=== PATIENT | male | born 2000 | race Caucasian/White ===

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

== ENCOUNTER 2022-03-03 09:10 | Emergency (ER) | payer MEDICAID ==
[~2022-03-03] VITALS: Ht 185.4 cm; Wt 68.2 kg
[~2022-03-03 09:10] MED LIST changes: +TORADOL PO; +ZYPREXA PO
[2022-03-03 09:45] VITALS: BP 129/77
== END 2022-03-03 09:45 | disposition home or self-care (01) ==
LOC: ED 09:10
DX: S61.012A Laceration without foreign body of left thumb without damage to nail, initial encounter (principal); F41.9 Anxiety disorder, unspecified; F32.A Depression, unspecified; W45.8XXA Other foreign body or object entering through skin, initial encounter; Y92.009 Unspecified place in unspecified non-institutional (private) residence as the place of occurrence of the external cause

== ENCOUNTER 2023-10-22 04:45 | Observation (INO) | payer SELFPAY ==
[2023-10-22] VITALS (16 sets, daily range): BP systolic 116–138; BP diastolic 66–110
[~2023-10-22] VITALS: Ht 185.4 cm; Wt 79.5 kg
[~2023-10-22 04:45] MED LIST changes: +MEDICAL MARIJUANA; +METRONIDAZOLE500 MG PO
[2023-10-22] MEDS ORDERED: SODIUM CHLORIDE 0.9% 1,000 ML IV STA (05:04)
[2023-10-22] MEDS ORDERED: ONDANSETRON HCl 4 MG/2 ML SDV IV STA (05:04)
[2023-10-22] MEDS ORDERED: KETOROLAC TROMETHAMINE 30 MG/ML SDV IV ONE (05:05)
[2023-10-22 05:33] LABS: BASO% 0.2 % (0-3); EOS% 0.8 % (0-8); HEMATOCRIT 41.1 % (39.0-50.0); HEMOGLOBIN 14.1 g/dl (14.0-18.0); IMMATURE GRANULOCYTES 0.1 % (0.0-5.0); LYMPH% 20.9 % (15-41); MEAN CORPUSCULAR HGB 29.5 pG CALC (26.0-32.0); MEAN CORPUSCULAR HGB CONC 34.3 g/dL CAL (32.0-36.0); MONO% 3.6 % (2-13); NEUT# 6.57 thou/uL (1.82-7.42); NEUT% 74.4 % (42-76); RED BLOOD COUNT 4.78 mill/uL (4.70-6.10); RED CELL DISTRI WIDTH 11.9 % (11.5-15.5)
[2023-10-22 05:41] LABS: ALBUMIN 4.4 g/dL (3.2-5.0); CREATININE 0.9 mg/dL (0.7-1.3); POTASSIUM 3.6 mmol/l (3.5-5.1); TOTAL PROTEIN 7.4 g/dL (6.3-8.2)
[2023-10-22 05:43] LABS: BILIRUBIN, TOTAL 0.9 mg/dL (0.2-1.3)
[2023-10-22] MEDS ORDERED: DICYCLOMINE HCL 20 MG/2 ML VIAL IM ONE (06:05)
[2023-10-22] MEDS ORDERED: MAGNESIUM HYDROXIDE 30 ML UDC PO PRN (06:05)
[2023-10-22] MEDS ORDERED: ACETAMINOPHEN 325 MG/TAB PO PRN (06:05)
[2023-10-22] MEDS ORDERED: HYDROmorphone HCL 2 MG/AMP IV ONE ×2 (06:05→06:35)
[2023-10-22] MEDS ORDERED: SODIUM CHLORIDE 0.9% 1,000 ML IV PRN (06:05)
[2023-10-22 07:19] LABS: URINE BILIRUBIN - DIPSTICK Negative (NEGATIVE); URINE BLOOD DIPSTICK Negative (NEGATIVE); URINE GLUCOSE - DIPSTICK Negative (NEGATIVE); URINE KETONE 40 mg/dL (NEGATIVE); URINE LEUK ESTERASE Negative (NEGATIVE); URINE NITRITE - DIPSTICK Negative (Negative); URINE PROTEIN - DIPSTICK Negative (NEG-TRACE); URINE SPECIFIC GRAVITY >=1.030; URINE UROBILINOGEN - DIPSTICK 0.2 E.U./dL (0.2)
[2023-10-22 07:28] LABS: URINE COLOR Yellow
[2023-10-22] MEDS ORDERED: ONDANSETRON HCl 4 MG/2 ML SDV IV PRN (12:40)
[2023-10-22] MEDS ORDERED: KETOROLAC TROMETHAMINE 30 MG/ML SDV IV PRN (12:40)
[2023-10-22] MEDS ORDERED: Pantoprazole Sodium 40 MG VIAL (Protonix) IV SCH (13:00)
[2023-10-22] MEDS ORDERED: ENOXAPARIN SODIUM 40 MG/0.4 ML SYR SC SCH (21:00)
== END 2023-10-22 13:04 | disposition home or self-care (01) | DRG 387 ==
LOC: ED 04:45 → ED-I 05:37 → ED 06:01 → ED-I 06:02
PROVIDERS: Emergency Medicine; ADMIT Internal Medicine; ATTEND Internal Medicine
DX: K50.10 Crohn's disease of large intestine without complications (principal); N20.0 Calculus of kidney; F41.9 Anxiety disorder, unspecified; F32.A Depression, unspecified; T36.8X6A Underdosing of other systemic antibiotics, initial encounter; T37.3X6A Underdosing of other antiprotozoal drugs, initial encounter; Z91.120 Patient's intentional underdosing of medication regimen due to financial hardship; Z87.442 Personal history of urinary calculi
CPT/HCPCS: S0164

== ENCOUNTER 2023-10-24 08:15 | Emergency (ER) | payer SELFPAY ==
[~2023-10-24] VITALS: Ht 185.4 cm; Wt 77.0 kg
[2023-10-24 08:23] VITALS: BP 135/79
[2023-10-24 08:30] VITALS: BP 117/78
[2023-10-24 08:46] VITALS: BP 124/70
[2023-10-24 09:00] VITALS: BP 123/80
[2023-10-24 09:00] LABS: BASO% 0.4 % (0-3); EOS% 1.9 % (0-8); HEMATOCRIT 42.5 % (39.0-50.0); HEMOGLOBIN 14.4 g/dl (14.0-18.0); LYMPH% 33.8 % (15-41); MEAN CELL VOLUME 86.4 fL CALC (80.0-100.0); MEAN CORPUSCULAR HGB 29.3 pG CALC (26.0-32.0); MEAN CORPUSCULAR HGB CONC 33.9 g/dL CAL (32.0-36.0); MONO% 6.4 % (2-13); NEUT# 2.97 thou/uL (1.82-7.42); NEUT% 57.5 % (42-76); RED BLOOD COUNT 4.92 mill/uL (4.70-6.10); RED CELL DISTRI WIDTH 11.8 % (11.5-15.5)
[2023-10-24 09:06] LABS: ALBUMIN 4.6 g/dL (3.2-5.0); BILIRUBIN, TOTAL 0.6 mg/dL (0.2-1.3); POTASSIUM 3.6 mmol/l (3.5-5.1); TOTAL PROTEIN 7.7 g/dL (6.3-8.2)
[2023-10-24 09:27] VITALS: BP 127/78
[2023-10-24 09:30] VITALS: BP 122/75
[2023-10-24] MEDS ORDERED: NAPROXEN500 MG PO ×2 (09:40→10:19)
== END 2023-10-24 09:40 | disposition home or self-care (01) | DRG 392 ==
LOC: ED 08:15
PROVIDERS: Family Medicine
DX: K52.9 Noninfective gastroenteritis and colitis, unspecified (principal); F41.9 Anxiety disorder, unspecified; F32.A Depression, unspecified; Z91.148 Patient's other noncompliance with medication regimen for other reason